=== PATIENT | male | born 1950 | race Caucasian/White ===

== ENCOUNTER 2018-01-07 10:35 | Inpatient (IN) | payer OTHER, BC ==
--- NOTE | 2018-01-07 10:37 | PDOC ---
History of Present Illness - General Chief Complaint: Chest Pain Stated Complaint: CHEST PAIN Time Seen by Provider: 01/07/18 10:36 - History of Present Illness Initial Comments: 01/07/18 11:55 67yo male with hx of burning tongue syndrome and hiatal hernia presents for eval of CP. States the pain in his chest woke him up at 4am today. Radiated to his neck, his throat, his jaw and his L arm. States he had LEBRON and felt sob walking into the hospital today. Pt was seen by Dr. Diane and had an EKG performed, which did not show acute st/t wave findings. States L arm discomfort and neck discomfort has improved. Pt denies n/v/d. No abd pain. States he took his pepcid this AM because he thought his cp was from his hiatal hernia without improvement in symptoms. Pt denies recent travel. No pleuritic component. No leg swelling/calf cramping. No other complaints. Pmhx: hiatal hernia, burning tongue syndrome Pshx: EGD, colo allergies: nkda Past History - Past Medical History Allergies/Adverse Reactions: Allergies Allergy/AdvReac Type Severity Reaction Status Date / Time No Known Drug Allergies Allergy Verified 01/07/18 11:06 CRUSTACEANS AdvReac Severe Vomiting Uncoded 01/07/18 11:06 Home Medications: Ambulatory Orders Pravastatin Sodium [Pravachol (Nf)] 20 mg PO HS 10/10/11 Aspirin [Aspirin EC] 81 mg PO DAILY 01/01/18 Cholecalciferol (Vitamin D3) [Vitamin D3] 2,000 iu PO DAILY 01/01/18 Folic Acid 1 each PO DAILY 01/01/18 Timolol 0.5% [Timoptic 0.5%] 1 drop OD ASDIR 01/07/18 Anemia: No Asthma: No Cancer: No Cardiac Disorders: No CVA: No COPD: No CHF: No Dementia: No Diabetes: No GI Disorders: Yes (ACID REFLUX) Disorders: No HTN: No Hypercholesterolemia: Yes Liver Disease: No Seizures: No Thyroid Disease: No - Surgical History Abdominal Surgery: No Appendectomy: No Cardiac Surgery: No Cholecystectomy: No Lung Surgery: No Neurologic Surgery: No Orthopedic Surgery: Yes (GANGLION CYST REMOVED) - Suicide/Smoking/Psychosocial Hx Smoking Status: No Smoking History: Former smoker Have you smoked in the past 12 months: No Number of Cigarettes Smoked Daily: 1 If you are a former smoker, when did you quit?: 1970'S Hx Alcohol Use: Yes (WINE RARE) Drug/Substance Use Hx: No Substance Use Type: None Hx Substance Use Treatment: No Review of Systems - Review of Systems Able to Perform ROS?: Yes Is the patient limited Kazakh proficient: No Constitutional: No: Chills, Fever HEENTM: No: Nose Pain, Nose Congestion, Throat Pain Respiratory: Yes: Shortness of Breath, SOB with Exertion. No: Cough Cardiac (ROS): Yes: Chest Pain. No: Irregular Heart Rate, Palpitations ABD/GI: No: Diarrhea, Nausea, Vomiting, Abdominal cramping : No: Burning, Dysuria Musculoskeletal: No: Back Pain Integumentary: No: Rash Neurological: No: Headache, Numbness, Paresthesia, Weakness All Other Systems: Reviewed and Negative *Physical Exam - Vital Signs 01/07/18 11:58 Selected Entries 01/07/18 10:36 Temperature 99.5 F Pulse Rate 73 Pulse Rhythm [ Regular Apical] Respiratory 18 Rate Blood Pressure 148/97 Blood Pressure 114 Mean O2 Sat by Pulse 98 Oximetry (%) Oxygen Delivery Room Air Method Weight 75.296 kg - Physical Exam General Appearance: Yes: Nourished, Appropriately Dressed. No: Apparent Distress HEENT: positive: EOMI, CHANTEL, Normal ENT Inspection, Pharynx Normal Neck: positive: Supple. negative: Tender, Rigid, Stridor Respiratory/Chest: positive: Lungs Clear, Normal Breath Sounds. negative: Chest Tender, Respiratory Distress Cardiovascular: positive: Regular Rhythm, Regular Rate, S1, S2. negative: Edema Gastrointestinal/Abdominal: positive: Normal Bowel Sounds, Soft. negative: Guarding, Rebound, Tenderness Musculoskeletal: positive: Normal Inspection. negative: CVA Tenderness Extremity: positive: Normal Capillary Refill, Normal Inspection. negative: Pedal Edema, Swelling, Calf Tenderness Integumentary: positive: Normal Color, Dry, Warm. negative: Rash Neurologic: positive: gin feeder II-XII NML intact, Fully Oriented, Motor Strength 5/5 , Other (ambulatory in the ED) Heart Score/ECG Review - History History: Moderately suspicious - Electrocardiogram EKG: Normal - Age Age: >/= 65 - Risk Factors Based on the list above the patient has:: No risk factors known - Troponin Troponin: </= normal limit - Score Heart Score - Total: 3 - ECG Intrepretation Comment:: 01/07/18 11:59 sinus at 74, nl axis, nl interval, no acute st/t wave findings ED Treatment Course - LABORATORY CBC & Chemistry Diagram: 01/07/18 11:03 01/07/18 11:03 Medical Decision Making - Medical Decision Making 01/07/18 11:59 a/p: 67yo male with cp today -story concerning for acs -hx of stress test and echo 6 years ago at [facility] that showed mild plaque buildup, but was not intevened on -lebron and cp today with radiation -will send labs, ekg, cxr -has not seen a machine stonecutter in 6 years -sent by PMD for obs and r/o TX 01/07/18 12:00 initial trop negative 01/07/18 12:00 microblog sent to [facility] for obs placement discussed labs and imaging results with the patient who agrees to stay for further eval [facility] agrees to keep pt for obs - requests consult to Dr. Willis cards given asa in the ed *DC/Admit/Observation/Transfer Diagnosis at time of Disposition: Chest pain - Discharge Dispostion Condition at time of disposition: Guarded Decision to Admit order: Yes - Referrals - Patient Instructions - Post Discharge Activity - Attestations Physician Attestion: 01/07/18 11:52 I, Dr. Valeria Alvarado DO, attest that this document has been prepared under my direction and personally reviewed by me in its entirety. I further attest, that it accurately reflects all work, treatment, procedures and medical decision -making performed by me.
[2018-01-07 10:48] VITALS: BMI 24.5
[2018-01-07 11:16] LABS: BASO % 1.1 % (0-2.0); EOS % 0.8 % (0-4.5); HEMATOCRIT 49.8 % (35.4-49); HEMOGLOBIN 16.4 GM/dl (11.7-16.9); LYMPH % 10.7 % (8-40); MCHC 32.9 g/dl (32.0-35.9); MEAN CELL VOLUME 91.3 fl (80-96); MEAN PLT VOLUME 8.6 fl (7.5-11.1); NEUT % 78.4 % (42.8-82.8); PLATELET COUNT 130 K/MM3 (134-434); RBC 5.45 M/mm3 (4.00-5.60); RDW 12.7 % (11.9-15.9); WHITE BLOOD COUNT 7.5 K/mm3 (4.0-10.8)
[2018-01-07 11:26] LABS: ALBUMIN 4.8 g/dl (3.5-5.0); ALK PHOS 53 U/L (32-92); ANION GAP 2 MMOL/L (8-16); BILIRUBIN,TOTAL 2.4 mg/dl (0.2-1.0); BLOOD UREA NITROGEN 18 mg/dl (7-18); CALCIUM 9.3 mg/dl (8.4-10.2); CHLORIDE 105 mmol/L (98-107); CO2 30 mmol/L (22-28); CREATININE 1.1 mg/dl (0.6-1.3); GLUCOSE,RANDOM 146 mg/dl (74-106); MAGNESIUM 2.2 mg/dL (1.8-2.4); POTASSIUM 4.5 mmol/L (3.5-5.1); SGOT/AST 24 U/L (10-42); SGPT/ALT 21 U/L (10-40); SODIUM 137 mmol/L (136-145); TOT PROT 7.5 g/dl (6.4-8.3)
[2018-01-07] MEDS ORDERED: ASPIRIN 81 MG CHEWABLE TABLETS PO ONE ×2 (11:48→12:03)
[2018-01-07] MEDS ORDERED: ASPIRIN 81 MG CHEWABLE TABLETS ONE (12:03)
--- NOTE | 2018-01-07 12:42 | HP ---
CHIEF COMPLAINT: chest pain PCP: Dr Smith HISTORY OF PRESENT ILLNESS: H is a 67-year-old male with a past medical history of hiatal hernia, glaucoma, hyperlipidemia. Patient reports that at 4 AM on this date ( 01/07/2018) he reports he awoke suddenly from his sleep with sharp chest pain radiating to his neck, jaw, and left arm. He reports taking his Pepcid soon after with no improvement of symptoms. he was evaluated by his primary care physician and was referred to the emergency department for further evaluation. Of note patient reports when he arrived to the hospital while he was walking into the building he noted dyspnea upon exertion with increased chest pressure. ER course was notable for: (1)troponin 1 WNL (2)EKG, normal sinus rhythm, normal axis (3)chest x-ray no infiltrate and no effusion noted Recent Travel: none PAST MEDICAL HISTORY: see history of present illness PAST SURGICAL HISTORY:multiple EGDs and colonoscopies Social History:resides at home with of 41 years, patient is a retired banker Smoking:former smoker Alcohol:social Drugs:none Family History: mother and 95 years old and alive and well Father brain CA Allergies No Known Drug Allergies Allergy (Verified 01/07/18 11:06) CRUSTACEANS Adverse Reaction (Severe, Uncoded 01/07/18 11:06) Vomiting HOME MEDICATIONS: Home Medications Medication Instructions Recorded Pravastatin Sodium [Pravachol (Nf)] 20 mg PO HS 10/10/11 Aspirin [Aspirin EC] 81 mg PO DAILY 01/01/18 Cholecalciferol (Vitamin D3) 2,000 iu PO DAILY 01/01/18 [Vitamin D3] Folic Acid 1 each PO DAILY 01/01/18 Timolol 0.5% [Timoptic 0.5%] 1 drop OD ASDIR 01/07/18 REVIEW OF SYSTEMS CONSTITUTIONAL: Absent: fever, chills, diaphoresis, generalized weakness, malaise, loss of appetite, weight change HEENT: Absent: rhinorrhea, nasal congestion, throat pain, throat swelling, difficulty swallowing, mouth swelling, ear pain, eye pain, visual changes CARDIOVASCULAR: Present: chest pain Absent: syncope, palpitations, irregular heart rate, lightheadedness, peripheral edema RESPIRATORY: present: dyspnea with exertion Absent: cough, shortness of breath, orthopnea, wheezing, stridor, hemoptysis GASTROINTESTINAL: Absent: abdominal pain, abdominal distension, nausea, vomiting, diarrhea, constipation, melena, hematochezia GENITOURINARY: Absent: dysuria, frequency, urgency, hesitancy, hematuria, flank pain, genital pain MUSCULOSKELETAL: Absent: myalgia, arthralgia, joint swelling, back pain, neck pain SKIN: Absent: rash, itching, pallor HEMATOLOGIC/IMMUNOLOGIC: Absent: easy bleeding, easy bruising, lymphadenopathy, frequent infections ENDOCRINE: Absent: unexplained weight gain, unexplained weight loss, heat intolerance, cold intolerance NEUROLOGIC: Absent: headache, focal weakness or paresthesias, dizziness, unsteady gait, seizure, mental status changes, bladder or bowel incontinence PSYCHIATRIC: Absent: anxiety, depression, suicidal or homicidal ideation, hallucinations. PHYSICAL EXAMINATION Vital Signs - 24 hr 01/07/18 10:36 Temperature 99.5 F Pulse Rate 73 Respiratory 18 Rate Blood Pressure 148/97 O2 Sat by Pulse 98 Oximetry (%) GENERAL: Awake, alert, and fully oriented, in no acute distress. HEAD: Normal with no signs of trauma. EYES: Pupils equal, round and reactive to light, extraocular movements intact, sclera anicteric, conjunctiva clear. No lid lag. EARS, NOSE, THROAT: Ears normal, nares patent, oropharynx clear without exudates. Moist mucous membranes. NECK: Normal range of motion, supple without lymphadenopathy, JVD, or masses. LUNGS: Breath sounds equal, clear to auscultation bilaterally. No wheezes, and no crackles. No accessory muscle use. HEART: Regular rate and rhythm, normal S1 and S2 without murmur, rub or gallop. ABDOMEN: Soft, nontender, not distended, normoactive bowel sounds, no guarding, no rebound, no masses. No hepatomegaly or splenomegaly. MUSCULOSKELETAL: Normal range of motion at all joints. No bony deformities or tenderness. No CVA tenderness. UPPER EXTREMITIES: 2+ pulses, warm, well-perfused. No cyanosis. No clubbing. No peripheral edema. LOWER EXTREMITIES: 2+ pulses, warm, well-perfused. No calf tenderness. No peripheral edema. NEUROLOGICAL: Cranial nerves II-XII intact. Normal speech. Normal gait. PSYCHIATRIC: Cooperative. Good eye contact. Appropriate mood and affect. SKIN: Warm, dry, normal turgor, no rashes or lesions noted, normal capillary refill. Laboratory Results - last 24 hr 01/07/18 01/07/18 01/07/18 11:03 11:03 11:03 WBC 7.5 RBC 5.45 Hgb 16.4 Hct 49.8 H MCV 91.3 MCH 30.0 MCHC 32.9 RDW 12.7 Plt Count 130 L MPV 8.6 Absolute Neuts (auto) 5.8 Neutrophils % 78.4 Lymphocytes % 10.7 Monocytes % 9.0 Eosinophils % 0.8 Basophils % 1.1 Sodium 137 Potassium 4.5 Chloride 105 Carbon Dioxide 30 H Anion Gap 2 L BUN 18 Creatinine 1.1 Creat Clearance w eGFR > 60 Random Glucose 146 H Calcium 9.3 Magnesium 2.2 Total Bilirubin 2.4 H AST 24 ALT 21 Alkaline Phosphatase 53 Creatine Kinase Troponin I < 0.03 Total Protein 7.5 Albumin 4.8 01/07/18 11:03 WBC RBC Hgb Hct MCV MCH MCHC RDW Plt Count MPV Absolute Neuts (auto) Neutrophils % Lymphocytes % Monocytes % Eosinophils % Basophils % Sodium Potassium Chloride Carbon Dioxide Anion Gap BUN Creatinine Creat Clearance w eGFR Random Glucose Calcium Magnesium Total Bilirubin AST ALT Alkaline Phosphatase Creatine Kinase 73 Troponin I Total Protein Albumin ASSESSMENT/PLAN: 1) cardiovascular chest pain r/o acs - continuous cardiac monitoring, EKG reviewed normal sinus rhythm normal access. - Aspirin given in the emergency department continue daily aspirin. - troponin 1 WNL pending second and third troponin, lipid profile ordered for AM - Patient does report he had a stress echo completed 5 years ago at [facility] which resulted as mild plaques as per patient - appreciate the input of cardiology, Dr Brock 2) GI hiatal hernia - start PPI - pt will require outpatient follow up with GI f/e/n - DASH diet - replete electrolytes prn ppx - oob - ppi dispo: pt requires Telemetry observation admission Visit type - Emergency Visit Emergency Visit: Yes ED Registration Date: 01/07/18 Care time: The patient presented to the Emergency Department on the above date and was hospitalized for further evaluation of their emergent condition. - New Patient This patient is new to me today: Yes Date on this admission: 01/08/18 - Critical Care Critical Care patient: No Hospitalist Screening - Colonoscopy Questionnaire Colonoscopy Questionnaire: Colonoscopy Questionnaire - Patient: 50 - 75 years old and never had a screening colonoscopy: No History of colon or rectal polyps, or CA: No History of IBD, Crohn's disease or UC: No History of abdominal radiation therapy as a child: No - Relative: 1 with colon or rectal CA, or polyps at age 60 or younger: No Colon or rectal CA diagnosed at age 45 or younger: No Multiple relatives with colon or rectal CA: No - Outcome: Screening Result: Negative Screen
[2018-01-07] MEDS ORDERED: ARTIFICIAL TEARS (POLYVINYL ALCOHOL) OPTH DROPS OU PRN (12:48)
[2018-01-07] MEDS ORDERED: ACETAMINOPHEN 325 MG TABLET (FP) PO PRN (12:50)
[2018-01-07] MEDS ORDERED: PANTOPRAZOLE 40 MG TABLET (FP) PO SCH (13:00)
[2018-01-07] MEDS ORDERED: PANTOPRAZOLE 40 MG TABLET (FP) ONE (13:53)
--- NOTE | 2018-01-07 15:16 | ECHO ---
Name: COLEEN SILVER Exam:Adult Echocardiogram Study Date: 01/07/2018 02:15 PM Age: 67 yrs Reason For Study: Chest pain Height: 69 in Weight: 165 lb BSA: 1.9 m2 MMode/2D Measurements & Calculations IVSd: 1.0 cm Ao root diam: 2.9 cm LVIDd: 4.3 cm LA dimension: 3.4 cm LVIDs: 2.4 cm LVPWd: 1.0 cm EDV(Teich): 84.5 ml ESV(Teich): 20.1 ml Doppler Measurements & Calculations MV E max no: 65.7 cm/sec MV A max no: 69.0 cm/sec MV dec slope: 321.9 cm/sec2 MV E/A: 0.95 Procedure A complete two-dimensional transthoracic echocardiogram was performed (2D, M-mode, Doppler and color flow Doppler). The study was technically excellent with all images being of optimal quality. Left Ventricle The left ventricular size, thickness and function are normal. Grade I diastolic dysfunction, (abnorma l relaxation pattern). The left ventricular wall motion is normal. Right Ventricle The right ventricle is normal in size and function. There is normal right ventricular wall thickness. Atria Normal left and right atrial size and function. Mitral Valve The mitral valve is normal in structure and function. There is trace mitral regurgitation. Tricuspid Valve The tricuspid valve is normal in structure and function. There is trace tricuspid regurgitation. Aortic Valve The aortic valve is trileaflet. The aortic valve is normal in structure and function. Mild aortic regurgitation. Pulmonic Valve The pulmonic valve is normal in structure and function. Trace pulmonic valvular regurgitation. Great Vessels The aortic root is normal size. Pericardium/Pleura There is no pericardial effusion. Interpretation Summary The left ventricular size, thickness and function are normal Grade I diastolic dysfunction, (abnormal relaxation pattern). The right ventricle is normal in size and function. Juventino Ferris MD 01/07/2018 03:16 PM
--- NOTE | 2018-01-07 17:23 | CON.CARD ---
Cardiology Consult (text) - Consultation Consultation Note: cc:cp hpi: 67 m hx hld here with cp. Early this AM woke up with mild central chest pressure, no radiation, worse with deep breaths and movements (bending, twisting ). CP persisted so went to PMD and sent to ER. Mild lebron as well. No palps, dizzy loc pnd orthopnea le edema. No recent cardiac testing. Was at gym yesterday and ran on treadmill w/o cp. Was doing chest/arm exercises yesterday , more than usually does. pmh: per hpi psh: no surgery social: ex tob fam: no premature cad, scd ros: per hpi; no nvd fever cough [place] vision changes gib hematuria dysuria meds: Home Medications Medication Instructions Recorded Pravastatin Sodium [Pravachol (Nf)] 20 mg PO HS 10/10/11 Aspirin [Aspirin EC] 81 mg PO DAILY 01/01/18 Cholecalciferol (Vitamin D3) 2,000 iu PO DAILY 01/01/18 [Vitamin D3] Folic Acid 1 each PO DAILY 01/01/18 Timolol 0.5% [Timoptic 0.5%] 1 drop OD ASDIR 01/07/18 pe: Vital Signs Period Temp Pulse Resp BP Sys/Smith Pulse Ox Last 24 Hr 99.2 F-99.5 F 71-77 18-20 124-148/80-97 98-99 nad no jvd rrr s1s2 no mrg cta bl nl eff aaox3 no le e/c/c abd nt nd pos bs no jaundice diaphoresis pos dp pt no carotid bruits Laboratory Last Values WBC 7.5 K/mm3 (4.0-10.8) 01/07/18 11:03 RBC 5.45 M/mm3 (4.00-5.60) 01/07/18 11:03 Hgb 16.4 GM/dl (11.7-16.9) 01/07/18 11:03 Hct 49.8 % (35.4-49) H 01/07/18 11:03 MCV 91.3 fl (80-96) 01/07/18 11:03 MCH 30.0 pg (25.7-33.7) 01/07/18 11:03 MCHC 32.9 g/dl (32.0-35.9) 01/07/18 11:03 RDW 12.7 % (11.9-15.9) 01/07/18 11:03 Plt Count 130 K/MM3 (134-434) L 01/07/18 11:03 MPV 8.6 fl (7.5-11.1) 01/07/18 11:03 Absolute Neuts (auto) 5.8 K/mm3 01/07/18 11:03 Neutrophils % 78.4 % (42.8-82.8) 01/07/18 11:03 Lymphocytes % 10.7 % (8-40) 01/07/18 11:03 Monocytes % 9.0 % (3.8-10.2) 01/07/18 11:03 Eosinophils % 0.8 % (0-4.5) 01/07/18 11:03 Basophils % 1.1 % (0-2.0) 01/07/18 11:03 Sodium 137 mmol/L (136-145) 01/07/18 11:03 Potassium 4.5 mmol/L (3.5-5.1) 01/07/18 11:03 Chloride 105 mmol/L (98-107) 01/07/18 11:03 Carbon Dioxide 30 mmol/L (22-28) H 01/07/18 11:03 Anion Gap 2 MMOL/L (8-16) L 01/07/18 11:03 BUN 18 mg/dl (7-18) 01/07/18 11:03 Creatinine 1.1 mg/dl (0.6-1.3) 01/07/18 11:03 Creat Clearance w eGFR > 60 (>60) 01/07/18 11:03 Random Glucose 146 mg/dl (74-106) H 01/07/18 11:03 Calcium 9.3 mg/dl (8.4-10.2) 01/07/18 11:03 Magnesium 2.2 mg/dL (1.8-2.4) 01/07/18 11:03 Total Bilirubin 2.4 mg/dl (0.2-1.0) H 01/07/18 11:03 AST 24 U/L (10-42) 01/07/18 11:03 ALT 21 U/L (10-40) 01/07/18 11:03 Alkaline Phosphatase 53 U/L (32-92) 01/07/18 11:03 Creatine Kinase 73 IU/L (39-308) 01/07/18 11:03 Troponin I < 0.03 ng/ml (0.00-0.06) 01/07/18 11:03 B-Natriuretic Peptide 130.09 pg/ml (5-125) H 01/07/18 11:03 Total Protein 7.5 g/dl (6.4-8.3) 01/07/18 11:03 Albumin 4.8 g/dl (3.5-5.0) 01/07/18 11:03 tele: sr ecgx3: sr, nl intervals, no ischemic changes echo 12/2017: nl lv/rv, mild ar cxr: clear lungs a/p: 67 m hx hld here with cp. cp: -some atypical, MSK features, possibly from using wt machine at gym yesterday -no signs acs so far, cont tele, gissel -echo unremarkable -if trops remain negative then will send for nuclear stress test tomorrow. If stress test benign then ok for dc from cardiac pov. -cont asa hld: -cont statin
[2018-01-07] MEDS ORDERED: MELATONIN 5 MG TABLETS PO PRN (22:00)
[2018-01-07] MEDS: ATORVASTATIN CA 10 MG TABLET (FP) PO SCH (22:04)
[2018-01-08 07:07] LABS: BASO % 0.7 % (0-2.0); EOS % 1.1 % (0-4.5); HEMATOCRIT 46.2 % (35.4-49); HEMOGLOBIN 15.4 GM/dl (11.7-16.9); LYMPH % 14.5 % (8-40); MCH 30.2 pg (25.7-33.7); MCHC 33.3 g/dl (32.0-35.9); MEAN CELL VOLUME 90.6 fl (80-96); MEAN PLT VOLUME 8.8 fl (7.5-11.1); MONO % 7.4 % (3.8-10.2); NEUT % 76.3 % (42.8-82.8); PLATELET COUNT 118 K/MM3 (134-434); RBC 5.09 M/mm3 (4.00-5.60); RDW 12.4 % (11.9-15.9); WHITE BLOOD COUNT 6.8 K/mm3 (4.0-10.8)
[2018-01-08 07:29] LABS: ALBUMIN 4.1 g/dl (3.5-5.0); ALK PHOS 51 U/L (32-92); ANION GAP 7 MMOL/L (8-16); BILIRUBIN,TOTAL 3.6 mg/dl (0.2-1.0); BLOOD UREA NITROGEN 20 mg/dl (7-18); CALCIUM 9.2 mg/dl (8.4-10.2); CHLORIDE 102 mmol/L (98-107); CO2 29 mmol/L (22-28); CREATININE 1.2 mg/dl (0.6-1.3); GLUCOSE,RANDOM 125 mg/dl (74-106); POTASSIUM 4.7 mmol/L (3.5-5.1); SGOT/AST 19 U/L (10-42); SGPT/ALT 17 U/L (10-40); SODIUM 138 mmol/L (136-145); TOT PROT 7.1 g/dl (6.4-8.3)
[2018-01-08 07:34] LABS: CHOLESTEROL 172 mg/dl; HDL CHOLESTEROL 50 mg/dl (29-89); LDL CHOLESTEROL (ONLY DFH) 109 mg/dl; TRIGLYCERIDES 66 mg/dl (35-160)
[2018-01-08] MEDS ORDERED: BACITRACIN 0.9 GM PACKET TP SCH (10:00)
[2018-01-08] MEDS ORDERED: TIMOLOL 0.5% OPHTHALMIC SOL 5 ML BOTTLE OD SCH (10:00)
[2018-01-08] MEDS ORDERED: ASPIRIN 81 MG CHEWABLE TABLETS PO SCH (10:00)
[2018-01-08] MEDS ORDERED: CHOLECALCIFEROL (VITAMIN D3) 1,000 UNIT TABLET (FP) PO SCH ×2 (10:00→15:00)
[2018-01-08] MEDS ORDERED: FOLIC ACID 1 MG TABLET (FP) PO SCH ×2 (10:00→15:00)
--- NOTE | 2018-01-08 10:43 | EKG ---
Test Reason : Blood Pressure : / mmHG Vent. Rate : 061 BPM Atrial Rate : 061 BPM P-R Int : 160 ms QRS Dur : 084 ms QT Int : 434 ms P-R-T Axes : 067 038 069 degrees QTc Int : 436 ms NORMAL SINUS RHYTHM POSSIBLE LEFT ATRIAL ENLARGEMENT BORDERLINE ECG WHEN COMPARED WITH ECG OF 08-JAN-2018 03:12, NO SIGNIFICANT CHANGE WAS FOUND Confirmed by KIARA BARRAGAN, FATUMA ([id number]) on 01/08/2018 10:43:27 AM Referred By: Confirmed By:FATUMA CRAIG MD
--- NOTE | 2018-01-08 10:43 | EKG ---
Test Reason : Blood Pressure : / mmHG Vent. Rate : 061 BPM Atrial Rate : 061 BPM P-R Int : 160 ms QRS Dur : 084 ms QT Int : 444 ms P-R-T Axes : 069 047 071 degrees QTc Int : 446 ms NORMAL SINUS RHYTHM POSSIBLE LEFT ATRIAL ENLARGEMENT BORDERLINE ECG WHEN COMPARED WITH ECG OF 07-JAN-2018 10:41, NO SIGNIFICANT CHANGE WAS FOUND Confirmed by KIARA BARRAGAN, FATUMA ([id number]) on 01/08/2018 10:43:25 AM Referred By: DR LANDERS Confirmed By:FATUMA CRAIG MD
--- NOTE | 2018-01-08 11:17 | PN ---
Physical Exam: SUBJECTIVE: Patient seen and examined, patient denies any chest pain, at 0322 patient had witnessed syncopal episode with bradycardia, hr was noted to be 42, patient regained consciousness soon after, no seizure activity noted. OBJECTIVE:67-year-old male with a past medical history of hiatal hernia, glaucoma, and hyperlipidemia. patient was admitted from the emergency department for chest pain r/o acs Vital Signs Period Temp Pulse Resp BP Sys/Smith Pulse Ox Last 24 Hr 98.6 F-99.2 F 57-77 18-20 89-145/57-85 91-99 GENERAL: The patient is awake, alert, and fully oriented, in no acute distress. HEAD: Normal with no signs of trauma. EYES: PERRL, extraocular movements intact, sclera anicteric, conjunctiva clear. No ptosis. ENT: Ears normal, nares patent, oropharynx clear without exudates, moist mucous membranes. NECK: Trachea midline, full range of motion, supple. LUNGS: Breath sounds equal, clear to auscultation bilaterally, no wheezes, no crackles, no accessory muscle use. HEART: Regular rate and rhythm, S1, S2 without murmur, rub or gallop. ABDOMEN: Soft, nontender, nondistended, normoactive bowel sounds, no guarding, no rebound, no hepatosplenomegaly, no masses. EXTREMITIES: 2+ pulses, warm, well-perfused, no edema. NEUROLOGICAL: Cranial nerves II through XII grossly intact. Normal speech, gait not observed. PSYCH: Normal mood, normal affect. SKIN: Warm, dry, normal turgor, no rashes or lesions noted Laboratory Results - last 24 hr 01/07/18 01/07/18 01/07/18 11:03 11:03 11:03 WBC 7.5 RBC 5.45 Hgb 16.4 Hct 49.8 H MCV 91.3 MCH 30.0 MCHC 32.9 RDW 12.7 Plt Count 130 L MPV 8.6 Absolute Neuts (auto) 5.8 Neutrophils % 78.4 Lymphocytes % 10.7 Monocytes % 9.0 Eosinophils % 0.8 Basophils % 1.1 Sodium 137 Potassium 4.5 Chloride 105 Carbon Dioxide 30 H Anion Gap 2 L BUN 18 Creatinine 1.1 Creat Clearance w eGFR > 60 Random Glucose 146 H Calcium 9.3 Magnesium 2.2 Total Bilirubin 2.4 H AST 24 ALT 21 Alkaline Phosphatase 53 Creatine Kinase Troponin I B-Natriuretic Peptide 130.09 H Total Protein 7.5 Albumin 4.8 Triglycerides Cholesterol Total LDL Cholesterol HDL Cholesterol 01/07/18 01/07/18 01/07/18 11:03 11:03 17:00 WBC RBC Hgb Hct MCV MCH MCHC RDW Plt Count MPV Absolute Neuts (auto) Neutrophils % Lymphocytes % Monocytes % Eosinophils % Basophils % Sodium Potassium Chloride Carbon Dioxide Anion Gap BUN Creatinine Creat Clearance w eGFR Random Glucose Calcium Magnesium Total Bilirubin AST ALT Alkaline Phosphatase Creatine Kinase 73 Troponin I < 0.03 < 0.03 B-Natriuretic Peptide Total Protein Albumin Triglycerides Cholesterol Total LDL Cholesterol HDL Cholesterol 01/07/18 01/07/18 01/07/18 17:00 23:00 23:00 WBC RBC Hgb Hct MCV MCH MCHC RDW Plt Count MPV Absolute Neuts (auto) Neutrophils % Lymphocytes % Monocytes % Eosinophils % Basophils % Sodium Potassium Chloride Carbon Dioxide Anion Gap BUN Creatinine Creat Clearance w eGFR Random Glucose Calcium Magnesium Total Bilirubin AST ALT Alkaline Phosphatase Creatine Kinase 60 50 Troponin I < 0.03 B-Natriuretic Peptide Total Protein Albumin Triglycerides Cholesterol Total LDL Cholesterol HDL Cholesterol 01/08/18 01/08/18 01/08/18 07:00 07:00 07:00 WBC 6.8 RBC 5.09 Hgb 15.4 Hct 46.2 MCV 90.6 MCH 30.2 MCHC 33.3 RDW 12.4 Plt Count 118 L MPV 8.8 Absolute Neuts (auto) 5.2 Neutrophils % 76.3 Lymphocytes % 14.5 D Monocytes % 7.4 Eosinophils % 1.1 Basophils % 0.7 Sodium 138 Potassium 4.7 Chloride 102 Carbon Dioxide 29 H Anion Gap 7 L BUN 20 H Creatinine 1.2 Creat Clearance w eGFR > 60 Random Glucose 125 H Calcium 9.2 Magnesium Total Bilirubin 3.6 H AST 19 D ALT 17 Alkaline Phosphatase 51 Creatine Kinase Troponin I B-Natriuretic Peptide Total Protein 7.1 Albumin 4.1 Triglycerides 66 Cholesterol 172 Total LDL Cholesterol 109 HDL Cholesterol 50 01/08/18 01/08/18 07:00 07:00 WBC RBC Hgb Hct MCV MCH MCHC RDW Plt Count MPV Absolute Neuts (auto) Neutrophils % Lymphocytes % Monocytes % Eosinophils % Basophils % Sodium Potassium Chloride Carbon Dioxide Anion Gap BUN Creatinine Creat Clearance w eGFR Random Glucose Calcium Magnesium Total Bilirubin AST ALT Alkaline Phosphatase Creatine Kinase 54 Troponin I < 0.03 B-Natriuretic Peptide Total Protein Albumin Triglycerides Cholesterol Total LDL Cholesterol HDL Cholesterol Active Medications Generic Name Dose Route Start Last Admin Trade Name Monica PRN Reason Stop Dose Admin Acetaminophen 650 mg 01/07/18 12:50 Tylenol - PO Q4H PRN FEVER Artificial Tears 1 drop 01/07/18 12:48 Artificial Tears OU TID PRN FOR ITCHING Aspirin 81 mg 01/08/18 10:00 Asa - PO DAILY SAMIRA Atorvastatin Calcium 10 mg 01/07/18 22:00 01/07/18 22:04 Lipitor - PO 10 mg HS SAMIRA Administration Bacitracin 0.9 gm 01/08/18 10:00 Bacitracin - TP BID SAMIRA Cholecalciferol 2,000 unit 01/08/18 10:00 Vitamin D3 - PO DAILY SAMIRA Folic Acid 1 mg 01/08/18 10:00 Folic Acid - PO DAILY SAMIRA Melatonin 10 mg 01/07/18 22:00 Melatonin PO HS PRN INSOMNIA Pantoprazole Sodium 40 mg 01/07/18 13:00 01/07/18 13:55 Protonix - PO 40 mg DAILY SAMIRA Administration Timolol Maleate 1 drop 01/08/18 10:00 Timoptic 0.5% OD DAILY [facility] [place] ASSESSMENT/PLAN: 1) cardiovascular chest pain r/o acs - continuous cardiac monitoring, no events on cardiac monitoring noted, repeat EKG this a.m.NSR unchanged from prior. - continue aspirin daily - Troponin 3 WNL - patient is pending nuclear stress test today - cardiology consulted and followed syncopal episode - echo lv wnl, grade I diastolic dysfunction - continous cardiac monitoring 2) GI hiatal hernia - start PPI - pt will require outpatient follow up with GI f/e/n - DASH diet - replete electrolytes prn ppx - oob - ppi dispo: pt requires Telemetry observation admission Visit type - Emergency Visit Emergency Visit: Yes ED Registration Date: 01/08/18 Care time: The patient presented to the Emergency Department on the above date and was hospitalized for further evaluation of their emergent condition. - New Patient This patient is new to me today: No - Critical Care Critical Care patient: No - Discharge Referral Referred to [facility] No
[2018-01-08] MEDS ORDERED: PANTOPRAZOLE 40 MG TABLET (FP) PO SCH (15:00)
[2018-01-08] MEDS: BACITRACIN 0.9 GM PACKET TP SCH ×2 (15:06→22:04)
--- NOTE | 2018-01-08 17:15 | PN ---
Progress Note (short form) - Note Progress Note: s: overnight was standing up urinating and felt weak so stopped urinating and went to wash hands and then felt clammy and passed out and fell to floor. Tele at time showed sinus elise around 40. Awoke soon after and felt fine. No recent syncope episodes. CP is gone now. No sob palps. ex cigs o: Vital Signs Temp 98.5 F 01/08/18 17:10 Pulse 65 01/08/18 17:10 Resp 18 01/08/18 17:10 BP 139/88 01/08/18 17:10 Pulse Ox 97 01/08/18 17:09 Intake & Output 01/07/18 01/08/18 01/08/18 23:59 11:59 23:59 Weight 157 lb 3.2 oz Other: Voiding Method Toilet Urinal Toilet Height 5 ft 9 in nad no jvd rrr s1s2 no mrg cta bl nl eff aaox3 no le e/c/c abd nt nd pos bs no jaundice diaphoresis Current Medications Generic Name Dose Route Start Last Admin Trade Name Freq PRN Reason Stop Dose Admin Acetaminophen 650 mg 01/07/18 12:50 Tylenol - PO Q4H PRN FEVER Artificial Tears 1 drop 01/07/18 12:48 Artificial Tears OU TID PRN FOR ITCHING Aspirin 81 mg 01/08/18 10:00 01/08/18 15:07 Asa - PO 81 mg DAILY SAMIRA Administration Atorvastatin Calcium 10 mg 01/07/18 22:00 01/07/18 22:04 Lipitor - PO 10 mg HS SAMIRA Administration Bacitracin 0.9 gm 01/08/18 15:15 01/08/18 15:06 Bacitracin - TP 0.9 gm BID SAMIRA Administration Cholecalciferol 2,000 unit 01/08/18 15:00 01/08/18 15:07 Vitamin D3 - PO 2,000 unit DAILY SAMIRA Administration Folic Acid 1 mg 01/08/18 15:00 01/08/18 15:07 Folic Acid - PO 1 mg DAILY SAMIRA Administration Melatonin 10 mg 01/07/18 22:00 Melatonin PO HS PRN INSOMNIA Pantoprazole Sodium 40 mg 01/08/18 15:00 01/08/18 15:07 Protonix - PO 40 mg DAILY SAMIRA Administration Prednisone 40 mg 01/08/18 18:00 Deltasone - PO 01/08/18 18:01 ONCE ONE Prednisone 40 mg 01/09/18 06:00 Deltasone - PO 01/09/18 06:01 ONCE ONE Timolol Maleate 1 drop 01/08/18 10:00 01/08/18 15:07 Timoptic 0.5% OD 1 drop DAILY SAMIRA Administration tele: sr, sb near 40 during episode of syncope ecgx3: sr, nl intervals, no ischemic changes echo 12/2017: nl lv/rv, mild ar cxr: clear lungs mibi 12/2017: mod inf ischemia a/p: 67 m hx hld here with cp. cp: -some atypical, MSK features -no signs acs so far, gissel negative and ecgs unremarkable -echo unremarkable -mibi today shows moderate inferior ischemia so will eval further with cardiac cath. discussed risk/benefits with pt and he agrees. d/w interventionalist and accepted for transfer to [facility] for cath tomorrow. pt has shellfish allergy so will premedicate with prednisone 40 tonight and 40 po in am. -cont tele -cont asa hld: -cont statin syncope: -seems vasovagal -no concerning abnormalities on tele during episode (sb in 40s, c/w vagal episode, along with low bp at the time, all precipitated by straining with urination) -echo unremarkable -cath as above -cont tele
[2018-01-08] MEDS ORDERED: predniSONE 20 MG TABLET (UD) PO ONE (18:00)
[2018-01-08] MEDS: ATORVASTATIN CA 10 MG TABLET (FP) PO SCH (22:04)
[2018-01-08 22:16] VITALS: BP 143/86; PULSE 68; TEMP 98.1
[2018-01-09] MEDS ORDERED: predniSONE 20 MG TABLET (UD) PO ONE (06:00)
--- NOTE | 2018-01-10 08:18 | DS ---
Physical Exam: SUBJECTIVE: Patient seen and examined, reports denies any chest pain or shortness of breath, at 0322 patient had witnessed syncopal episode with bradycardia, hr was noted to be 42, patient regained consciousness soon after, no seizure activity noted. OBJECTIVE: Patient is a 67-year-old male with a past medical history of hiatal hernia, glaucoma, hyperlipidemia. Patient reports that at 4 AM on this date ( ) he reports he awoke suddenly from his sleep with sharp chest pain radiating to his neck, jaw, and left arm. He reports taking his Pepcid soon after with no improvement of symptoms. he was evaluated by his primary care physician and was referred to the emergency department for further evaluation. Of note patient reports when he arrived to the hospital while he was walking into the building he noted dyspnea upon exertion with increased chest pressure. ER course was notable for: (1)troponin 1 WNL (2)EKG, normal sinus rhythm, normal axis (3)chest x-ray no infiltrate and no effusion noted PHYSICAL EXAM GENERAL: The patient is awake, alert, and fully oriented, in no acute distress. HEAD: Normal with no signs of trauma. EYES: PERRL, extraocular movements intact, sclera anicteric, conjunctiva clear. No ptosis. ENT: Ears normal, nares patent, oropharynx clear without exudates, moist mucous membranes. NECK: Trachea midline, full range of motion, supple. LUNGS: Breath sounds equal, clear to auscultation bilaterally, no wheezes, no crackles, no accessory muscle use. HEART: Regular rate and rhythm, S1, S2 without murmur, rub or gallop. ABDOMEN: Soft, nontender, nondistended, normoactive bowel sounds, no guarding, no rebound, no hepatosplenomegaly, no masses. EXTREMITIES: 2+ pulses, warm, well-perfused, no edema. NEUROLOGICAL: Cranial nerves II through XII grossly intact. Normal speech, gait not observed. PSYCH: Normal mood, normal affect. SKIN: Warm, dry, normal turgor, no rashes or lesions noted LABS CBC WBC 6.8 K/mm3 (4.0-10.8) 01/08/18 07:00 RBC 5.09 M/mm3 (4.00-5.60) 01/08/18 07:00 Hgb 15.4 GM/dl (11.7-16.9) 01/08/18 07:00 Hct 46.2 % (35.4-49) 01/08/18 07:00 MCV 90.6 fl (80-96) 01/08/18 07:00 MCH 30.2 pg (25.7-33.7) 01/08/18 07:00 MCHC 33.3 g/dl (32.0-35.9) 01/08/18 07:00 RDW 12.4 % (11.9-15.9) 01/08/18 07:00 Plt Count 118 K/MM3 (134-434) L 01/08/18 07:00 MPV 8.8 fl (7.5-11.1) 01/08/18 07:00 Absolute Neuts (auto) 5.2 K/mm3 01/08/18 07:00 Neutrophils % 76.3 % (42.8-82.8) 01/08/18 07:00 Lymphocytes % 14.5 % (8-40) D 01/08/18 07:00 Monocytes % 7.4 % (3.8-10.2) 01/08/18 07:00 Eosinophils % 1.1 % (0-4.5) 01/08/18 07:00 Basophils % 0.7 % (0-2.0) 01/08/18 07:00 CMP Sodium 138 mmol/L (136-145) 01/08/18 07:00 Potassium 4.7 mmol/L (3.5-5.1) 01/08/18 07:00 Chloride 102 mmol/L (98-107) 01/08/18 07:00 Carbon Dioxide 29 mmol/L (22-28) H 01/08/18 07:00 Anion Gap 7 MMOL/L (8-16) L 01/08/18 07:00 BUN 20 mg/dl (7-18) H 01/08/18 07:00 Creatinine 1.2 mg/dl (0.6-1.3) 01/08/18 07:00 Creat Clearance w eGFR > 60 (>60) 01/08/18 07:00 Random Glucose 125 mg/dl (74-106) H 01/08/18 07:00 Calcium 9.2 mg/dl (8.4-10.2) 01/08/18 07:00 Magnesium 2.2 mg/dL (1.8-2.4) 01/07/18 11:03 Total Bilirubin 3.6 mg/dl (0.2-1.0) H 01/08/18 07:00 AST 19 U/L (10-42) D 01/08/18 07:00 ALT 17 U/L (10-40) 01/08/18 07:00 Alkaline Phosphatase 51 U/L (32-92) 01/08/18 07:00 Creatine Kinase 54 IU/L (39-308) 01/08/18 07:00 Troponin I < 0.03 ng/ml (0.00-0.06) 01/08/18 07:00 B-Natriuretic Peptide 130.09 pg/ml (5-125) H 01/07/18 11:03 Total Protein 7.1 g/dl (6.4-8.3) 01/08/18 07:00 Albumin 4.1 g/dl (3.5-5.0) 01/08/18 07:00 Triglycerides 66 mg/dl (35-160) 01/08/18 07:00 Cholesterol 172 mg/dl 01/08/18 07:00 Total LDL Cholesterol 109 mg/dl 01/08/18 07:00 HDL Cholesterol 50 mg/dl (29-89) 01/08/18 07:00 Laboratory Tests 01/07/18 01/07/18 01/07/18 11:03 17:00 23:00 Troponin I < 0.03 < 0.03 < 0.03 01/08/18 07:00 Troponin I < 0.03 HOSPITAL COURSE: patient was admitted for an emergency department observation telemetry for chest pain rule out ACS. Patient was placed on continuous cardiac monitoring, on 2 days date 12/18/2017 at 3:22 AM patient was ambulating to urinate and developed a syncopal episode heart rate was noted to be sinus bradycardia in the 30s, patient regained consciousness soon after no seizure activity was noted. Troponin x [address] Gottlieb was consulted and following patient throughout admission. echo lv wnl, grade I diastolic dysfunction. in collaboration with the [facility] nuclear stress test was completed which was significant for moderate sized inferior wall mild intensity reversible ischemia. as a result patient will be transferred to [facility] for emergent cardiac catheterization. Date of Admission:01/08/18 Date of Discharge: 01/10/18 Minutes to complete discharge: 45 Discharge Summary Reason For Visit: CHEST PAIN Condition: Guarded - Instructions Disposition: TRANSFER ACUTE CARE/OTHER HOSP - Home Medications Comprehensive Discharge Medication List: Ambulatory Orders Pravastatin Sodium [Pravachol (Nf)] 20 mg PO HS 10/10/11 Aspirin [Aspirin EC] 81 mg PO DAILY 01/01/18 Cholecalciferol (Vitamin D3) [Vitamin D3] 2,000 iu PO DAILY 01/01/18 RX: Folic Acid 1 each PO DAILY 01/01/18 Timolol 0.5% [Timoptic 0.5%] 1 drop OD ASDIR 01/07/18 This patient is new to me today: No Emergency Visit: Yes ED Registration Date: 01/08/18 Care time: The patient presented to the Emergency Department on the above date and was hospitalized for further evaluation of their emergent condition. Critical Care patient: No - Discharge Referral Referred to [facility] No
--- NOTE | 2018-01-13 14:17 | EKG ---
Test Reason : Blood Pressure : / mmHG Vent. Rate : 074 BPM Atrial Rate : 074 BPM P-R Int : 162 ms QRS Dur : 082 ms QT Int : 388 ms P-R-T Axes : 071 048 067 degrees QTc Int : 430 ms NORMAL SINUS RHYTHM NORMAL ECG NO PREVIOUS ECGS AVAILABLE Confirmed by BAO GONZALEZ MD ([id number]) on 01/13/2018 2:16:48 PM Referred By: GABY MAYA Confirmed By:BAO GONZALEZ MD
== END 2018-01-08 22:45 | disposition short-term general hospital (02) | DRG 303 ==
LOC: FER 10:35 → FM/S 11:52 → OBSVTOIN 01-08 17:09
PROVIDERS: ADMIT Hospitalist; ATTEND Nurse Practitioner Family
DX: I25.10 Atherosclerotic heart disease of native coronary artery without angina pectoris (principal); R07.89 Other chest pain; E78.5 Hyperlipidemia, unspecified; R55 Syncope and collapse; R00.1 Bradycardia, unspecified; K44.9 Diaphragmatic hernia without obstruction or gangrene
CPT/HCPCS: 36415; 71046-TC-FY; 78452-TC; 80053; 80061; 82550; 83735; 83880; 84484; 85025; 93005; 93017; 93306-TC; 99285-25; A9502; G0378

== ENCOUNTER 2018-02-10 10:27 | Day surgery (SDC) | payer OTHER, BC ==
[2018-02-03 18:28] VITALS: BMI 24.0
[2018-02-10] MEDS ORDERED: PROPOFOL 20 ML ONE ×2 (10:44)
[2018-02-10 12:15] VITALS: TEMP 98
[2018-02-10 12:36] VITALS: BP 110/74; PULSE 56
== END 2018-02-10 12:55 | disposition home or self-care (01) ==
LOC: FASU-ENDO 10:27
PROVIDERS: ATTEND Internal Medicine Gastroenterology
PROC: 0DJD8ZZ Inspection of Lower Intestinal Tract, Via Natural or Artificial Opening Endoscopic (ICD-10-PCS; principal; 2018-02-10 11:47)
DX: Z86.010 Personal history of colon polyps (principal); Z83.71 Family history of colonic polyps

== ENCOUNTER 2023-06-10 09:09 | Day surgery (SDC) | payer OTHER, BC ==
[2023-06-04 10:02] VITALS: BMI 22.9
[2023-06-10 11:28] VITALS: RESP 18; TEMP 97.4
[2023-06-10 11:45] VITALS: BP 100/60; PULSE 60
== END 2023-06-10 11:54 | disposition home or self-care (01) ==
LOC: FASU-ENDO 09:09
PROVIDERS: ATTEND Internal Medicine Gastroenterology
PROC: 0DJD8ZZ Inspection of Lower Intestinal Tract, Via Natural or Artificial Opening Endoscopic (ICD-10-PCS; principal; 2023-06-10 11:03)
DX: Z12.11 Encounter for screening for malignant neoplasm of colon (principal); Z86.010 Personal history of colon polyps; Z80.0 Family history of malignant neoplasm of digestive organs

== ENCOUNTER 2023-09-30 11:11 | Day surgery (SDC) | payer OTHER, MEDICARE ==
[2023-09-25 15:57] VITALS: BMI 22.9
[2023-09-30 13:00] VITALS: TEMP 98
[2023-09-30 13:01] VITALS: BP 110/65; PULSE 68; RESP 19
== END 2023-09-30 13:03 | disposition home or self-care (01) ==
LOC: FASU-ENDO 11:11
PROVIDERS: ATTEND Internal Medicine Gastroenterology
PROC: 0DB68ZX Excision of Stomach, Via Natural or Artificial Opening Endoscopic, Diagnostic (ICD-10-PCS; 2023-09-30)
PROC: 0DB98ZX Excision of Duodenum, Via Natural or Artificial Opening Endoscopic, Diagnostic (ICD-10-PCS; principal; 2023-09-30 12:17)
DX: K29.50 Unspecified chronic gastritis without bleeding (principal); R12 Heartburn
CPT/HCPCS: 88305-TC; 88342-TC